=== PATIENT | female | born 2000 | race African-American/Black ===

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

== ENCOUNTER 2019-06-26 18:48 | Emergency (ER) | payer MEDICAID ==
[~2019-06-26] VITALS: Ht 154.9 cm; Wt 44.5 kg
[2019-06-26 18:56] VITALS: BP 120/81
--- NOTE | 2019-06-26 18:56 | NUR ---
ED Nurse Note: pt walked in to ED c/o pain 5/10 from bilateral hand that radiates upward to bilateral arms. pt also c/o headache. S/Sx started about 2 weeks ago. denied n/v. VSS
[2019-06-26 20:01] LABS: BASOPHILS % (AUTO) 1.2 % (0.0-2.0); EOSINOPHILS % (AUTO) 1.4 % (0.0-3.0); HEMATOCRIT 40.4 % (37.0-47.0); HEMOGLOBIN 13.3 G/DL (12.0-16.0); LYMPHOCYTES % (AUTO) 33.9 % (20.0-45.0); MEAN CORPUSCULAR VOLUME 84 FL (80-99); MONOCYTES % (AUTO) 5.7 % (1.0-10.0); NEUTROPHILS % (AUTO) 57.7 % (45.0-75.0); PLATELET COUNT 245 K/UL (150-450); RED BLOOD COUNT 4.81 M/UL (4.20-5.40); WHITE BLOOD COUNT 8.6 K/UL (4.8-10.8)
[2019-06-26 20:04] LABS: APPEARANCE,URINE CLEAR; BILIRUBIN, URINE NEGATIVE (NEGATIVE); COLOR,URINE PALE YELLOW; GLUCOSE, URINE (UA) NEGATIVE (NEGATIVE); KETONES,URINE NEGATIVE (NEGATIVE); LEUKOCYTE ESTERASE ,URINE NEGATIVE (NEGATIVE); NITRITE,URINE NEGATIVE (NEGATIVE); PH,URINE 7 (4.5-8.0); PROTEIN,URINE NEGATIVE (NEGATIVE); UROBILINOGEN,URINE NORMAL MG/DL (0.0-1.0)
[2019-06-26 20:18] LABS: ANION GAP 13 mmol/L (5-15); BLOOD UREA NITROGEN 12 mg/dL (7-18); CALCIUM 10.1 MG/DL (8.5-10.1); CARBON DIOXIDE 26 MMOL/L (21-32); CHLORIDE 105 MMOL/L (98-107); POTASSIUM 3.7 MMOL/L (3.5-5.1); SODIUM 144 MMOL/L (136-145)
[2019-06-26 20:23] LABS: ALANINE AMINOTRANSFERASE 14 U/L (12-78); ALBUMIN 4.8 G/DL (3.4-5.0); ALBUMIN/GLOBULIN RATIO 1.2 (1.0-2.7); ALKALINE PHOSPHATASE 53 U/L (46-116); ASPARTATE AMINO TRANSFERASE 18 U/L (15-37); BILIRUBIN,TOTAL 0.5 MG/DL (0.2-1.0)
[2019-06-26] MEDS ORDERED: Methocarbamol 750mg tab ORAL ONE (20:30)
--- NOTE | 2019-06-26 20:33 | Emergency Room Report ---
History of Present Illness General Chief Complaint: Pain Source: Patient Present Illness HPI 18-year-old female presents to the emergency department complaining of generalized pain and muscle cramps in the bilateral hands and wrists with radiation intermittently up the forearms. Patient also reports intermittent frontal headache. Patient denies history of migraine she denies acute onset of her headache she denies nausea or vomiting. Patient reports history of abnormal calcium. Patient states she is currently taking vitamins. She denies fevers or chills, trauma or fall, rashes, erythema or swelling. Patient reports pain is primarily localized in the thenar areas bilaterally. Patient does report moderate cell phone usage and states that she believes this exacerbates her symptoms. Patient also reports intermittent use of computer/ typing. Denies neck or back pain. Denies numbness tingling or loss of sensation or gross motor movements of the extremities, incontinence of bowel or bladder. Denies CP, Palpitations, LOC, AMS, dizziness, Changes in Vision, or weakness. Patient reports her doctor evaluated her 2 weeks ago for these symptoms however they have been persistent despite taking vitamins. She denies any additional changes in her symptoms from previously experienced symptoms that were evaluated for. Allergies: Coded Allergies: No Known Allergies (Unverified , 12/09/18) Patient History Past Medical History: see triage record Past Surgical History: none Pertinent Family History: none Last Menstrual Period: bcp Now: No Reviewed Nursing Documentation: PMH: Agreed; PSxH: Agreed Nursing Documentation-PMH Past Medical History: No History, Except For Hx Hypertension: Yes Review of Systems All Other Systems: negative except mentioned in HPI Physical Exam Vital Signs Date Time Temp Pulse Resp B/P (MAP) Pulse Ox O2 Delivery O2 Flow Rate FiO2 06/26/19 18:53 98.2 79 18 121/81 (94) 99 Room Air Sp02 EP Interpretation: reviewed, normal General Appearance: no apparent distress, alert, GCS 15, non-toxic, thin Head: normocephalic, atraumatic Eyes: bilateral eye normal inspection, bilateral eye PERRL, bilateral eye other - no photophobia ENT: hearing grossly normal, normal voice Neck: full range of motion, no meningismus Respiratory: chest non-tender, lungs clear, normal breath sounds, no respiratory distress, no accessory muscle use, no wheezing, speaking full sentences Cardiovascular #1: regular rate, rhythm, normal capillary refill Cardiovascular #2: 2+ radial (R), 2+ radial (L) Gastrointestinal: non tender, soft, no guarding Genitourinary: normal inspection, no CVA tenderness Musculoskeletal: back normal, gait/station normal, normal range of motion, non- tender - NO Tenderness at this time. unable to illicit muscle cramps Neurologic: alert, oriented x3, responsive, motor strength/tone normal, sensory intact, normal gait, speech normal, grossly normal Psychiatric: judgement/insight normal, memory normal, no suicidal/homicidal ideation, depressed affect - depressed/ flattened aspect. Skin: no rash Lymphatic: no adenopathy Medical Decision Making PA Attestation Dr. Everett Is my supervising Physician whom patient management has been discussed with. Diagnostic Impression: Primary Impression: Bilateral hand pain Additional Impressions: Muscle cramps Head ache Qualified Codes: R51 - Headache ER Course 18-year-old female presents to the emergency department complaining of generalized pain and muscle cramps in the bilateral hands and wrists with radiation intermittently up the forearms. Patient also reports intermittent frontal headache. Patient denies history of migraine she denies acute onset of her headache she denies nausea or vomiting. Patient reports history of abnormal calcium. Patient states she is currently taking vitamins. She denies fevers or chills, trauma or fall, rashes, erythema or swelling. Patient reports pain is primarily localized in the thenar areas bilaterally. Patient does report moderate cell phone usage and states that she believes this exacerbates her symptoms. Patient also reports intermittent use of computer/ typing. Denies neck or back pain. Denies numbness tingling or loss of sensation or gross motor movements of the extremities, incontinence of bowel or bladder. Denies CP, Palpitations, LOC, AMS, dizziness, Changes in Vision, or weakness. Patient reports her doctor evaluated her 2 weeks ago for these symptoms however they have been persistent despite taking vitamins. She denies any additional changes in her symptoms from previously experienced symptoms that were evaluated for. Ddx considered but are not limited to Fracture, dislocation, contusion, Sprain/ Strain/Spasm, radiculopathy, carpal tunnel syndrome, electrolyte imbalance, calcium imbalance, tension headaches to name a few Vital signs: are WNL, pt. is afebrile H&PE are most consistent with bilateral tendinitis possible carpal tunnel syndrome no localized bony tenderness to warrant x-ray imaging. No focal neurological deficits. Patient is nontoxic in appearance and in no acute distress full range of motion. 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 ORDERS: -CBC: WNL -BMP: WNL -UA: WNL -Urine hCG: Negative ED INTERVENTIONS: - Robaxin PO -Motrin PO Patient was provided with 2 wrist splints and instructed to wear them at night to see if she has improvement of her symptoms as this is the first line treatment for carpal tunnel syndrome. She was Instructed on their use and how to determine if they have been applied to tightly causing circulation issues. She verbalized and demonstrated her understanding -I do not identify an emergent condition at this time. With current presentation , pt. is stable for close outpatient follow up and conservative treatment. D/ w pt. to return promptly to ED with worsening or new symptoms.- Pt. verbalizes' understanding and agreement with proposed treatment plan. DISCHARGE: At this time pt. is stable for d/c to home. Will provide printed patient care instructions, and any necessary prescriptions. Care plan and follow up instructions have been discussed with the patient prior to discharge. Labs Test 06/26/19 19:39 White Blood Count 8.6 K/UL (4.8-10.8) Red Blood Count 4.81 M/UL (4.20-5.40) Hemoglobin 13.3 G/DL (12.0-16.0) Hematocrit 40.4 % (37.0-47.0) Mean Corpuscular Volume 84 FL (80-99) Mean Corpuscular Hemoglobin 27.6 PG (27.0-31.0) Mean Corpuscular Hemoglobin Concent 32.9 G/DL (32.0-36.0) Red Cell Distribution Width 13.0 % (11.6-14.8) Platelet Count 245 K/UL (150-450) Mean Platelet Volume 7.9 FL (6.5-10.1) Neutrophils (%) (Auto) 57.7 % (45.0-75.0) Lymphocytes (%) (Auto) 33.9 % (20.0-45.0) Monocytes (%) (Auto) 5.7 % (1.0-10.0) Eosinophils (%) (Auto) 1.4 % (0.0-3.0) Basophils (%) (Auto) 1.2 % (0.0-2.0) Urine Color Pale yellow Urine Appearance Clear Urine pH 7 (4.5-8.0) Urine Specific [place] 1.005 (1.005-1.035) Urine Protein Negative (NEGATIVE) Urine Glucose (UA) Negative (NEGATIVE) Urine Ketones Negative (NEGATIVE) Urine Blood 2+ (NEGATIVE) Urine Nitrite Negative (NEGATIVE) Urine Bilirubin Negative (NEGATIVE) Urine Urobilinogen Normal MG/DL (0.0-1.0) Urine Leukocyte Esterase Negative (NEGATIVE) Urine RBC 2-4 /HPF (0 - 2) Urine WBC 0-2 /HPF (0 - 2) Urine Squamous Epithelial Cells Few /LPF (NONE/OCC) Urine Bacteria Few /HPF (NONE) Urine HCG, Qualitative Negative (NEGATIVE) Sodium Level 144 MMOL/L (136-145) Potassium Level 3.7 MMOL/L (3.5-5.1) Chloride Level 105 MMOL/L (98-107) Carbon Dioxide Level 26 MMOL/L (21-32) Anion Gap 13 mmol/L (5-15) Blood Urea Nitrogen 12 mg/dL (7-18) Creatinine 1.0 MG/DL (0.55-1.30) Estimat Glomerular Filtration Rate > 60 mL/min (>60) Glucose Level 89 MG/DL (74-106) Calcium Level 10.1 MG/DL (8.5-10.1) Total Bilirubin 0.5 MG/DL (0.2-1.0) Aspartate Amino Transf (AST/SGOT) 18 U/L (15-37) Alanine Aminotransferase (ALT/SGPT) 14 U/L (12-78) Alkaline Phosphatase 53 U/L (46-116) Total Protein 8.8 G/DL (6.4-8.2) Albumin 4.8 G/DL (3.4-5.0) Globulin 4.0 g/dL Albumin/Globulin Ratio 1.2 (1.0-2.7) Last Vital Signs Date Time Temp Pulse Resp B/P (MAP) Pulse Ox O2 Delivery O2 Flow Rate FiO2 06/26/19 18:53 98.2 79 18 121/81 (94) 99 Room Air Disposition: HOME, SELF-CARE Condition: Stable Scripts Methocarbamol* (ROBAXIN-750*) 750 Mg Tablet 750 MG PO TID, #21 TAB 0 Refills Prov: Shante Bowen 06/26/19 Naproxen* (NAPROXEN*) 500 Mg Tablet. 500 MG ORAL TWICE A DAY for 7 Days, #14 TAB Prov: Shante Bowen 06/26/19 Referrals: NON PHYSICIAN (PCP) Patient Instructions: Carpal Tunnel Syndrome, [id number], General Headache Without Cause, [id number]-[id number], Muscle Cramps and Spasms Additional Instructions: Take medications as directed. I do not identify an emergent condition at this time. Given your current presentation you are stable for outpatient continuation of evaluation and care * Follow up with a Primary Care Provider in 3-5 days for SPECIALIST REFERRAL FOR MORE THOROUGH TESTING, even if your symptoms have resolved. --Please review list of primary care clinics, if you do not already have a primary care provider Return sooner to ED if new symptoms occur, or current symptoms become worse. - Please note that this Emergency Department Report was dictated using [employer] coordinator technology software, occasionally this can lead to erroneous entry secondary to interpretation by the dictation equipment. Shante Bowen Jun 26, 2019 20:33
[2019-06-26] MEDS ORDERED: ROBAXIN-750750 MG PO (20:34)
[2019-06-26] MEDS ORDERED: NAPROXEN500 M1 ORAL (20:34)
[2019-06-26 20:44] VITALS: BP 118/80
--- NOTE | 2019-06-26 20:44 | NUR ---
ER DISCHARGE NOTE: Patient is cleared to be discharged per ERMD, pt is aox4, on room air, with stable vital signs. pt was given dc and prescription instructions, pt was able to verbalize understanding, pt id bandremoved without complications. pt is able to ambulate with steady gait. pt took all belongings.
== END 2019-06-26 20:44 | disposition home or self-care (01) ==
LOC: EMR 19:30
DX: R51 Headache (principal); M79.642 Pain in left hand; M79.641 Pain in right hand; R25.2 Cramp and spasm; I10 Essential (primary) hypertension
CPT/HCPCS: 36415; 80053; 81003; 81025; 85025; 99283

== ENCOUNTER 2019-08-28 16:05 | Emergency (ER) | payer MEDICAID ==
[~2019-08-28] VITALS: Ht 154.9 cm; Wt 45.4 kg
[~2019-08-28 16:05] MED LIST: NAPROXEN500 M1 ORAL; ROBAXIN-750750 MG PO
--- NOTE | 2019-08-28 16:26 | NUR ---
ED Nurse Note: pt states she ate crawfish yest for first time and now with stomach "rumbling" and felling itching to belly area. pt anxious upon arrival. pt denies etoh/drug use. pt denies rash. pt with mother present. 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 no dyspnea noted.
[2019-08-28 16:28] VITALS: BP 139/78
[2019-08-28] MEDS ORDERED: Omnipaque-300 100ml vial INJ PRN (16:30)
--- NOTE | 2019-08-28 16:30 | NUR ---
ED Nurse Note: pt amb with steady gait to brp to obtain urine sample with family assistance. pt voiding clear light yellow urine. tolerates iv and lab draw well. pt and family aware to remain npo.
[2019-08-28] MEDS ORDERED: DiphenhydrAMINE 50mg/ml Inj IVP ONE (16:45)
[2019-08-28 17:05] LABS: APPEARANCE,URINE CLEAR; BILIRUBIN, URINE NEGATIVE (NEGATIVE); COLOR,URINE PALE YELLOW; GLUCOSE, URINE (UA) NEGATIVE (NEGATIVE); KETONES,URINE NEGATIVE (NEGATIVE); LEUKOCYTE ESTERASE ,URINE NEGATIVE (NEGATIVE); NITRITE,URINE NEGATIVE (NEGATIVE); PH,URINE 7 (4.5-8.0); PROTEIN,URINE NEGATIVE (NEGATIVE); UROBILINOGEN,URINE NORMAL MG/DL (0.0-1.0)
[2019-08-28 17:07] LABS: BASOPHILS % (AUTO) 2.3 % (0.0-2.0); EOSINOPHILS % (AUTO) 1.4 % (0.0-3.0); HEMATOCRIT 44.4 % (37.0-47.0); HEMOGLOBIN 14.9 G/DL (12.0-16.0); LYMPHOCYTES % (AUTO) 50.4 % (20.0-45.0); MEAN CORPUSCULAR VOLUME 87 FL (80-99); MONOCYTES % (AUTO) 6.2 % (1.0-10.0); NEUTROPHILS % (AUTO) 39.7 % (45.0-75.0); PLATELET COUNT 255 K/UL (150-450); RED BLOOD COUNT 5.13 M/UL (4.20-5.40); RED CELL DISTRIBUTION WIDTH 11.8 % (11.6-14.8); WHITE BLOOD COUNT 5.4 K/UL (4.8-10.8)
[2019-08-28] MEDS ORDERED: MULTIVITAMINS1 EAC2 ORAL (17:08)
[2019-08-28 17:12] LABS: ANION GAP 12 mmol/L (5-15); BLOOD UREA NITROGEN 8 mg/dL (7-18); CARBON DIOXIDE 25 MMOL/L (21-32); CHLORIDE 106 MMOL/L (98-107); CREATININE 0.9 MG/DL (0.55-1.30); POTASSIUM 3.6 MMOL/L (3.5-5.1); SODIUM 143 MMOL/L (136-145)
[2019-08-28 17:17] LABS: ALANINE AMINOTRANSFERASE 19 U/L (12-78); ALBUMIN 4.8 G/DL (3.4-5.0); ALBUMIN/GLOBULIN RATIO 1.2 (1.0-2.7); ALKALINE PHOSPHATASE 58 U/L (46-116); ASPARTATE AMINO TRANSFERASE 24 U/L (15-37); BILIRUBIN,TOTAL 0.5 MG/DL (0.2-1.0)
--- NOTE | 2019-08-28 17:59 | Emergency Room Report ---
History of Present Illness General Chief Complaint: Generalized Weakness Source: Patient Present Illness HPI 19-year-old female with history of anxiety brought in by mom complaining of left lower quadrant abdominal pain after Eating fish last night. Patient complains of nausea but denies diarrhea, constipation, blood in stool, vomiting. Denies fever and chills. Reports that she started having pruritus all over her arms after eating a fish. Denies anaphylaxis, and has been taking Benadryl with improvement. Patient is crying and expressing a lot of anxiety. Denies history of tobacco smoke, drug use, alcohol intake. Denies urinary symptoms. Denies recent travel Allergies: Coded Allergies: No Known Allergies (Unverified , 12/09/18) Patient History Past Medical History: see triage record Past Surgical History: unable to obtain Pertinent Family History: none Last Menstrual Period: 08/11/19 Now: No : 0 Para: 0 Immunizations: UTD Reviewed Nursing Documentation: PMH: Agreed; PSxH: Agreed Nursing Documentation-PMH Past Medical History: No Stated History Hx Hypertension: Yes Review of Systems All Other Systems: negative except mentioned in HPI Physical Exam Vital Signs Date Time Temp Pulse Resp B/P (MAP) Pulse Ox O2 Delivery O2 Flow Rate FiO2 08/28/19 16:09 98.2 109 24 139/78 (98) Room Air 08/28/19 16:28 99 Sp02 EP Interpretation: reviewed, normal General Appearance: no apparent distress, alert, GCS 15, non-toxic Head: normocephalic, atraumatic Eyes: bilateral eye normal inspection, bilateral eye PERRL ENT: hearing grossly normal, normal pharynx, no angioedema, normal voice Neck: full range of motion, supple/symm/no masses Respiratory: chest non-tender, lungs clear, normal breath sounds, no rhonchi, no retraction, no wheezing, speaking full sentences Cardiovascular #1: regular rate, rhythm, no edema, no murmur, normal capillary refill Cardiovascular #2: 2+ radial (R), 2+ radial (L) Gastrointestinal: non tender, soft, no mass, no organomegaly, no peritonitis, no bruit, no guarding Genitourinary: no CVA tenderness Musculoskeletal: back normal, gait/station normal, normal range of motion, non- tender Neurologic: alert, oriented x3, responsive, motor strength/tone normal, sensory intact, speech normal Psychiatric: normal inspection, judgement/insight normal, memory normal Skin: no rash Lymphatic: no adenopathy Medical Decision Making PA Attestation All my diagnosis and treatment plans were reviewed ad discussed with my supervising physician Dr. Irizarry Diagnostic Impression: Primary Impression: Allergic reaction to food Additional Impression: Anxiety ER Course 19-year-old female with history of anxiety brought in by mom complaining of left lower quadrant abdominal pain after Eating fish last night. Patient complains of nausea but denies diarrhea, constipation, blood in stool, vomiting. Denies fever and chills. Reports that she started having pruritus all over her arms after eating a fish. Denies anaphylaxis, and has been taking Benadryl with improvement. Patient is crying and expressing a lot of anxiety. Denies history of tobacco smoke, drug use, alcohol intake. Denies urinary symptoms. Denies recent travel Ddx considered but are not limited to: Eczema, allergic reaction to food, gastroenteritis, anxiety Vital signs: are WNL, pt. is afebrile H&PE are most consistent with: Anxiety, and allergic reaction to food ORDERS: CBC, CMP, lipase, urine, urine test, ED INTERVENTIONS: NS bolus, Zofran, Benadryl DISCHARGE: At this time pt. is stable for d/c to home. Will provide printed patient care instructions, and any necessary prescriptions. Care plan and follow up instructions have been discussed with the patient prior to discharge. At this time patient is doing okay to be discharged to follow-up with her primary care provider, increase oral hydration, if worsening symptoms return to emergency room. No indication for CT scan as patient is not tender EKG Diagnostic Results Rate: normal Rhythm: NSR ST Segments: no acute changes Other Impression No acute ST changes Chest X-Ray Diagnostic Results Chest X-Ray Diagnostic Results : Chest X-Ray Ordered: Yes # of Views/Limited/Complete: 1 View Indication: Other EP Interpretation: Yes FRED Xray: Interpretation reviewed, by supervising MD, and agrees with findings. Interpretation: no consolidation, no effusion, no pneumothorax Impression: No acute disease Electronically Signed by: Lis Cedillo PA-C Last Vital Signs Date Time Temp Pulse Resp B/P (MAP) Pulse Ox O2 Delivery O2 Flow Rate FiO2 08/28/19 16:28 98.2 109 24 139/78 99 Room Air Disposition: HOME, SELF-CARE Condition: Stable Scripts Diphenhydramine HCl (Benadryl) 25 Mg Capsule 25 MG PO BID, #14 CAP Prov: Lis Stanley 08/28/19 Ondansetron (Zofran) 4 Mg Tablet 4 MG ORAL Q6H PRN for Nausea & Vomiting, #10 TAB Prov: Lis Stanley 08/28/19 Patient Instructions: Abdominal Pain, Adult, Allergies, [id number], Generalized Anxiety Disorder Additional Instructions: Take medication, follow-up with your primary care provider, increase oral hydration avoid eating food that you are allergic to. If worsening symptoms return to the emergency room. Lis Stanley Aug 28, 2019 17:59
[2019-08-28] MEDS ORDERED: BENADRYL25 M3 PO (18:00)
[2019-08-28] MEDS ORDERED: ZOFRAN4 M1 ORAL (18:00)
--- NOTE | 2019-08-28 18:10 | NUR ---
ED Nurse Note: pa in to reeval pt. pt cleared for dc home with family. pt a/ox4.
[2019-08-28 18:17] VITALS: BP 112/65
== END 2019-08-28 18:10 | disposition home or self-care (01) ==
LOC: EMR 18:00
DX: T78.1XXA Other adverse food reactions, not elsewhere classified, initial encounter (principal); F41.9 Anxiety disorder, unspecified; R10.32 Left lower quadrant pain; L29.9 Pruritus, unspecified; I10 Essential (primary) hypertension; Z32.02 Encounter for pregnancy test, result negative; X58.XXXA Exposure to other specified factors, initial encounter
CPT/HCPCS: 36415; 80053; 80307; 81003; 81025; 83690; 85025; 85610; 85730; 86850; 86900; 86901; 93005; 96361; 96374; 96375; G0480; J1200; J2405; S0028; Z7502; 99284; J7030

== ENCOUNTER 2019-09-04 11:22 | Emergency (ER) | payer MEDICAID ==
[~2019-09-04] VITALS: Ht 154.9 cm; Wt 49.9 kg
[~2019-09-04 11:22] MED LIST changes: +BENADRYL25 M3 PO; +MULTIVITAMINS1 EAC2 ORAL; +ZOFRAN4 M1 ORAL
[2019-09-04 11:53] LABS: BASOPHILS % (AUTO) 2.1 % (0.0-2.0); EOSINOPHILS % (AUTO) 0.4 % (0.0-3.0); HEMATOCRIT 45.3 % (37.0-47.0); HEMOGLOBIN 15.1 G/DL (12.0-16.0); MEAN CORPUSCULAR VOLUME 88 FL (80-99); MONOCYTES % (AUTO) 6.8 % (1.0-10.0); NEUTROPHILS % (AUTO) 55.7 % (45.0-75.0); PLATELET COUNT 233 K/UL (150-450); RED BLOOD COUNT 5.14 M/UL (4.20-5.40); RED CELL DISTRIBUTION WIDTH 12.2 % (11.6-14.8)
[2019-09-04 12:12] LABS: ANION GAP 14 mmol/L (5-15); BLOOD UREA NITROGEN 8 mg/dL (7-18); CALCIUM 9.8 MG/DL (8.5-10.1); CARBON DIOXIDE 25 MMOL/L (21-32); CHLORIDE 102 MMOL/L (98-107); CREATININE 0.9 MG/DL (0.55-1.30); POTASSIUM 3.8 MMOL/L (3.5-5.1); SODIUM 141 MMOL/L (136-145)
[2019-09-04 12:17] LABS: ALANINE AMINOTRANSFERASE 20 U/L (12-78); ALBUMIN/GLOBULIN RATIO 1.2 (1.0-2.7); ALKALINE PHOSPHATASE 56 U/L (46-116); ASPARTATE AMINO TRANSFERASE 22 U/L (15-37); BILIRUBIN,TOTAL 0.8 MG/DL (0.2-1.0); CREATINE KINASE 125 U/L (26-308)
[2019-09-04] MEDS: DiphenhydrAMINE 50mg/ml Inj IVP ONE ×2 (12:51→13:23)
--- NOTE | 2019-09-04 13:00 | NUR ---
COMPLAINTS OF PANIC ATTACK DR UPTON AT BEDSIDE
[2019-09-04 14:00] VITALS: BP 120/78
--- NOTE | 2019-09-04 14:00 | NUR ---
PATIENT MAY GO HOME WAITING FOR MOTHER TO COME
[2019-09-04 14:07] LABS: APPEARANCE,URINE CLEAR; BILIRUBIN, URINE NEGATIVE (NEGATIVE); COLOR,URINE PALE YELLOW; GLUCOSE, URINE (UA) NEGATIVE (NEGATIVE); KETONES,URINE 3+ (NEGATIVE); LEUKOCYTE ESTERASE ,URINE NEGATIVE (NEGATIVE); NITRITE,URINE NEGATIVE (NEGATIVE); PH,URINE 6 (4.5-8.0); PROTEIN,URINE NEGATIVE (NEGATIVE); UROBILINOGEN,URINE NORMAL MG/DL (0.0-1.0)
--- NOTE | 2019-09-04 14:56 | Emergency Room Report ---
History of Present Illness General Chief Complaint: General Complaint Source: Patient, Family Member, EMS Present Illness HPI Patient was brought in by EMS for complaints of anxiety. She is difficult describing was going out with her at this time. She denies suicidal homicidal ideation. She feels epigastric pain, shortness of breath, strange feeling under her eyes with dryness as well as dryness and discomfort in her nose. She does not believe she is at this time. Patient was seen here August 28. This is the history that was obtained: 19-year-old female with history of anxiety brought in by mom complaining of left lower quadrant abdominal pain after Eating fish last night. Patient complains of nausea but denies diarrhea, constipation, blood in stool, vomiting. Denies fever and chills. Reports that she started having pruritus all over her arms after eating a fish. Denies anaphylaxis, and has been taking Benadryl with improvement. Patient is crying and expressing a lot of anxiety. Denies history of tobacco smoke, drug use, alcohol intake. Denies urinary symptoms. Denies recent travel it was felt that the patient had an allergic reaction to patient to food. In addition it was noted that the patient had anxiety at that time. Patient denies prior psychiatric illness. Her last menstruation was normal for her. She lives with her mother. No fevers, chills, sore throat, chest pain, palpitations, nausea, vomiting, diarrhea, dysuria, joint pain, rashes, visual changes, dizziness, headache. For further history received emergency department course. Allergies: Uncoded Allergies: SHELLFISH (Allergy, Unknown, 09/04/19) Patient History Past Medical History: see triage record, old chart reviewed Social History: Denies: smoking, alcohol use, drug use - prior THC Social History Narrative adopted Now: No Reviewed Nursing Documentation: PMH: Agreed; PSxH: Agreed Nursing Documentation-PM Past Medical History: No Stated History Hx Hypertension: Yes Review of Systems All Other Systems: negative except mentioned in HPI Physical Exam Vital Signs Date Time Temp Pulse Resp B/P (MAP) Pulse Ox O2 Delivery O2 Flow Rate FiO2 09/04/19 11:14 98.2 93 16 117/77 (90) 99 Room Air Sp02 EP Interpretation: reviewed, normal General Appearance: well appearing, no apparent distress, GCS 15 Head: normocephalic, atraumatic Eyes: bilateral eye normal inspection, bilateral eye PERRL, bilateral eye EOMI ENT: moist mucus membranes Neck: supple Respiratory: lungs clear, normal breath sounds Cardiovascular #1: regular rate, rhythm Cardiovascular #2: 2+ radial (R) Gastrointestinal: normal inspection, normal bowel sounds, non tender, no mass, non-distended Musculoskeletal: back normal, gait/station normal, normal range of motion Neurologic: alert, oriented x3, grossly normal Psychiatric: no suicidal/homicidal ideation, anxious - But flat affect Skin: no rash, palpation normal, warm/dry Medical Decision Making Diagnostic Impression: Primary Impression: Anxiety Additional Impression: Epigastric pain ER Course Patient presents with anxiety via EMS. Differential includes panic attack, anxiety, electrolyte imbalance, underlying psychiatric disorder, , gastritis amongst others. Patient evaluated with labs. Patient treated with IV hydration. Patient has a strange affect. Patient denies denies suicidal or homicidal ideation. Labs unremarkable. In discussion with patient about treatment of the anxiety she states that her mother who is a RN does not want her to be medically treated. Due to the patient's symptoms Benadryl and Pepcid are administered. Additional medical history: Mother states that the patient is adopted. Recently she is moved to find her biologic parents. This coincides with increased anxiety. In addition she had previously been using THC but stopped because the anxiety seemed to worsen. Apparently the patient has been seeing a therapist. She has an appointment next month with her private physician to consider further treatment of the anxiety. On August 28 she was prescribed Zofran and Benadryl. Mom has been adverse to consider other treatments of anxiety at this time. The patient has been sleeping with the mother and feels increased anxiety when she was from the adoptive mother. The patient complains about dryness and pain in her nose, discomfort under her eyes, epigastric discomfort with burning. Diagnosis of prior allergic reaction is questioned based on history and findings at this time.. Discussed findings with adoptive mother and patient. Strongly recommended seeing her private physician this week. Discussed the consideration for treatment with trazodone or Paxil. As the patient is somatasizing and has a flat affect this may be the onset of schizoaffective disorder. This could be triggered by the recent investigation of her biologic parents. Mother and patient agree agree that she is not a danger to herself or others at this time. Patient does feel some improvement plan treatment here. No medical emergency at this time. Patient stable for outpatient observation and treatment. Laboratory Tests Test 09/04/19 11:43 09/04/19 13:30 White Blood Count 5.0 K/UL (4.8-10.8) Red Blood Count 5.14 M/UL (4.20-5.40) Hemoglobin 15.1 G/DL (12.0-16.0) Hematocrit 45.3 % (37.0-47.0) Mean Corpuscular Volume 88 FL (80-99) Mean Corpuscular Hemoglobin 29.3 PG (27.0-31.0) Mean Corpuscular Hemoglobin Concent 33.3 G/DL (32.0-36.0) Red Cell Distribution Width 12.2 % (11.6-14.8) Platelet Count 233 K/UL (150-450) Mean Platelet Volume 8.6 FL (6.5-10.1) Neutrophils (%) (Auto) 55.7 % (45.0-75.0) Lymphocytes (%) (Auto) 35.0 % (20.0-45.0) Monocytes (%) (Auto) 6.8 % (1.0-10.0) Eosinophils (%) (Auto) 0.4 % (0.0-3.0) Basophils (%) (Auto) 2.1 % (0.0-2.0) H Sodium Level 141 MMOL/L (136-145) Potassium Level 3.8 MMOL/L (3.5-5.1) Chloride Level 102 MMOL/L (98-107) Carbon Dioxide Level 25 MMOL/L (21-32) Anion Gap 14 mmol/L (5-15) Blood Urea Nitrogen 8 mg/dL (7-18) Creatinine 0.9 MG/DL (0.55-1.30) Estimate Glomerular Filtration Rate > 60 mL/min (>60) Glucose Level 96 MG/DL (74-106) Calcium Level 9.8 MG/DL (8.5-10.1) Total Bilirubin 0.8 MG/DL (0.2-1.0) Aspartate Amino Transferase (AST) 22 U/L (15-37) Alanine Aminotransferase (ALT) 20 U/L (12-78) Alkaline Phosphatase 56 U/L (46-116) Total Creatine Kinase 125 U/L (26-308) Total Protein 9.0 G/DL (6.4-8.2) H Albumin 5.0 G/DL (3.4-5.0) Globulin 4.0 g/dL Albumin/Globulin Ratio 1.2 (1.0-2.7) Salicylates Level 0.4 ug/mL (2.8-20) L Acetaminophen Level < 2 MCG/ML (10-30) L Serum Alcohol < 3 mg/dL Urine Color Pale yellow Urine Appearance Clear Urine pH 6 (4.5-8.0) Urine Specific [place] 1.005 (1.005-1.035) Urine Protein Negative (NEGATIVE) Urine Glucose (UA) Negative (NEGATIVE) Urine Ketones 3+ (NEGATIVE) H Urine Blood 1+ (NEGATIVE) H Urine Nitrite Negative (NEGATIVE) Urine Bilirubin Negative (NEGATIVE) Urine Urobilinogen Normal MG/DL (0.0-1.0) Urine Leukocyte Esterase Negative (NEGATIVE) Urine RBC 0-2 /HPF (0 - 2) Urine WBC 0 /HPF (0 - 2) Urine Squamous Epithelial Cells Occasional /LPF Urine Bacteria Occasional /HPF (NONE) Urine HCG, Qualitative Negative (NEGATIVE) Urine Opiates Screen Negative (NEGATIVE) Urine Barbiturates Screen Negative (NEGATIVE) Phencyclidine (PCP) Screen Negative (NEGATIVE) Urine Amphetamines Screen Negative (NEGATIVE) Urine Benzodiazepines Screen Negative (NEGATIVE) Urine Cocaine Screen Negative (NEGATIVE) Urine Marijuana (THC) Screen Negative (NEGATIVE) Last Vital Signs Date Time Temp Pulse Resp B/P (MAP) Pulse Ox O2 Delivery O2 Flow Rate FiO2 09/04/19 14:00 78 16 Room Air 09/04/19 14:00 97.8 120/78 98 Status: improved Disposition: HOME, SELF-CARE Condition: Improved Scripts Famotidine* (Pepcid 20mg tablet*) 20 Mg Tablet 20 MG ORAL DAILY, #20 TAB 0 Refills Prov: Sedrick Morales MD 09/04/19 Referrals: NON PHYSICIAN (PCP) Sedrick Morales MD Sep 04, 2019 14:56
[2019-09-04] MEDS ORDERED: FAMOTIDINE20 MG ORAL (14:57)
--- NOTE | 2019-09-04 15:00 | NUR ---
DISCHARGE HOME WITH INSTRUCTION LEFT WITH MOTHER
== END 2019-09-04 15:00 | disposition home or self-care (01) ==
LOC: EDBD 11:22 → EMR 12:14
DX: F41.9 Anxiety disorder, unspecified (principal); R10.13 Epigastric pain; Z91.013 Allergy to seafood; I10 Essential (primary) hypertension
CPT/HCPCS: 36415; 80053; 80307; 81003; 81025; 82550; 85025; 96361; 96374; 96375; G0480; G0481; J1200; S0028; Z7502; 99284; J7030

== ENCOUNTER 2019-10-20 12:37 | Emergency (ER) | payer MEDICAID ==
[~2019-10-20] VITALS: Ht 162.6 cm; Wt 54.4 kg
[~2019-10-20 12:37] MED LIST changes: +FAMOTIDINE20 MG ORAL
[2019-10-20 13:03] VITALS: BP 117/77
--- NOTE | 2019-10-20 13:23 | Emergency Room Report ---
History of Present Illness General Chief Complaint: General Complaint Source: Patient Present Illness HPI 19-year-old female presents to the emergency department complaining of overwhelming feeling of sadness, tearfulness and anxiety while at home. Patient has a history of anxiety and currently is taking Lexapro and Klonopin. Patient reports she did not take Klonopin today as she reserves it for panic attacks. Patient states that she is on her fourth week of Lexapro and also experiences intermittent headaches. Patient denies trauma or fall, visual changes, nausea, vomiting, fevers, chills, neck pain or stiffness. Patient denies SI or HI. She denies auditory or visual hallucinations. Patient denies manic episodes. Patient reports excessive worry over something happening to her. Patient states she is going through stress as at home her mother is rearranging furniture in the patient's bedroom and this is upsetting the patient. She denies illicit drug use. No other aggravating or relieving factors at this time. She denies chest pain, shortness of breath or palpitations. She reports intermittent epigastric burning pain with indigestion / burping. Denies abdominal pain or tenderness at this time. Allergies: Uncoded Allergies: SHELLFISH (Allergy, Unknown, 09/04/19) Patient History Past Medical History: see triage record, psych hx Past Surgical History: none Pertinent Family History: none Now: No Reviewed Nursing Documentation: PMH: Agreed; PSxH: Agreed Nursing Documentation-PMH Past Medical History: No History, Except For Hx Hypertension: Yes Review of Systems All Other Systems: negative except mentioned in HPI Physical Exam Vital Signs Date Time Temp Pulse Resp B/P (MAP) Pulse Ox O2 Delivery O2 Flow Rate FiO2 10/20/19 12:36 98.1 98 18 117/77 (90) 99 Room Air Sp02 EP Interpretation: reviewed, normal General Appearance: no apparent distress, alert, GCS 15, non-toxic Head: normocephalic, atraumatic Eyes: bilateral eye normal inspection, bilateral eye PERRL ENT: hearing grossly normal, normal voice Neck: full range of motion Respiratory: chest non-tender, lungs clear, normal breath sounds, no wheezing, speaking full sentences Cardiovascular #1: regular rate, rhythm Cardiovascular #2: 2+ radial (R), 2+ radial (L) Gastrointestinal: normal bowel sounds, non tender, soft Genitourinary: normal inspection, no CVA tenderness Musculoskeletal: normal range of motion, gait/station normal, non-tender Neurologic: alert, motor strength/tone normal, oriented x3, sensory intact, responsive, speech normal, grossly normal Psychiatric: judgement/insight normal, memory normal, no suicidal/homicidal ideation, no delusions, depressed affect, other - anxious and tearful affect. Pt. with repeated general medical questions and asking for recommendations. Pt. appears comforted when in conversation. Suicide Risk Assessment: Suicidal Ideation: No Had intent to initiate attempt: No Pt's plan for suicide attempt: No Has means to complete attempt: No Skin: no rash, normal color, normal inspection, other - NO open wounds. No PSA scars Medical Decision Making PA Attestation Dr. Pleitez is my supervising Physician whom patient management has been discussed with. Diagnostic Impression: Primary Impression: Encounter for medical screening examination Additional Impression: History of depression ER Course 19-year-old female presents to the emergency department complaining of overwhelming feeling of sadness, tearfulness and anxiety while at home. Patient has a history of anxiety and currently is taking Lexapro and Klonopin. Patient reports she did not take Klonopin today as she reserves it for panic attacks. Patient states that she is on her fourth week of Lexapro and also experiences intermittent headaches. Patient denies trauma or fall, visual changes, nausea, vomiting, fevers, chills, neck pain or stiffness. Patient denies SI or HI. She denies auditory or visual hallucinations. Patient denies manic episodes. Patient reports excessive worry over something happening to her. Patient states she is going through stress as at home her mother is rearranging furniture in the patient's bedroom and this is upsetting the patient. She denies illicit drug use. No other aggravating or relieving factors at this time. She denies chest pain, shortness of breath or palpitations. She reports intermittent epigastric burning pain with indigestion / burping. Denies abdominal pain or tenderness at this time. Pt is has a very anxious and tearful affect. Pt. with repeated general medical questions and asking for recommendations. Pt. appears comforted when in conversation. Ddx considered but are not limited to OD, SI/HI, psychosis, UTI, intoxication, Depression, medication SE, anxiety just to name a few. Vital signs: are WNL, pt. is afebrile H&PE are most consistent with behavioral/mental health issue- No comments, complaints or queues to suggest immediate danger to self or others. ORDERS: None required at this time. ED INTERVENTIONS: - None required at this time. DISCHARGE: At this time pt. is stable for d/c to home. with close outpatient psychiatric follow up. Will provide printed patient care instructions, and any necessary prescriptions. Care plan and follow up instructions have been discussed with the patient prior to discharge. Pt. has mental health specialist , however [facility] mental health urgent care resource is also given to her. Last Vital Signs Date Time Temp Pulse Resp B/P (MAP) Pulse Ox O2 Delivery O2 Flow Rate FiO2 10/20/19 13:03 98 18 Room Air 10/20/19 13:03 98.1 117/77 99 Disposition: HOME, SELF-CARE Condition: Stable Scripts Ibuprofen* (MOTRIN*) 400 Mg Tablet 400 MG ORAL THREE TIMES A DAY PRN for For Headache, #15 TAB 0 Refills Prov: Shante Bowen 10/20/19 Famotidine* (Pepcid 20mg tablet*) 20 Mg Tablet 20 MG ORAL TWICE A DAY for 7 Days, #14 TAB 0 Refills Prov: Shante Bowen 10/20/19 Referrals: NOT CHOSEN IPA/MD,REFERRING (PCP) Patient Instructions: Depression, Adult, Major Depressive Disorder, Medical Screening Exam Additional Instructions: Take previously prescribed medications as directed. Follow up with a Mental Health Specialist/ Psychiatrist in 3 days, even if your symptoms have resolved. --Please review [facility] resource information provided - - If you do not have access to your mental health specialist. Return sooner to ED if new symptoms occur, or current symptoms become worse. - Please note that this Emergency Department Report was dictated using [employer] host technology software, occasionally this can lead to erroneous entry secondary to interpretation by the dictation equipment. Shante Bowen Oct 20, 2019 13:23
[2019-10-20] MEDS ORDERED: IBUPROFEN400 MG ORAL (13:24)
[2019-10-20] MEDS ORDERED: FAMOTIDINE20 MG ORAL (13:24)
[2019-10-20 13:31] VITALS: BP 119/72
== END 2019-10-20 13:30 | disposition home or self-care (01) ==
LOC: EDBD 12:37 → EMR 13:00
DX: Z00.00 Encounter for general adult medical examination without abnormal findings (principal); F32.9 Major depressive disorder, single episode, unspecified; I10 Essential (primary) hypertension; Z79.899 Other long term (current) drug therapy; Z91.013 Allergy to seafood
CPT/HCPCS: 99283